=== PATIENT | female | born 1995 | race Caucasian/White ===

== ENCOUNTER 2020-11-06 20:17 | Emergency (ER) | payer MEDICAID ==
[~2020-11-06] VITALS: Ht 162.6 cm; Wt 74.8 kg
[2020-11-06 20:30] VITALS: BP 114/65
--- NOTE | 2020-11-06 20:33 | NUR ---
TO LOBBY A/W BED AMBULATORY
--- NOTE | 2020-11-07 01:13 | NUR ---
Patient being evaluated by physician.
--- NOTE | 2020-11-07 01:15 | NUR ---
Patient evaluated by Dr. Pierce. No nursing interventions for this patient.
[2020-11-07] MEDS ORDERED: NAPR-54 PO (01:33)
--- NOTE | 2020-11-07 01:39 | NUR ---
Patient given discharge instructions and discharged by Dr. Pierce. Rx of naprosyn given. Medication administration and side effects explained by Dr. Pierce. Opportunity to ask questions given prior to departure.
== END 2020-11-07 01:39 | disposition home or self-care (01) ==
LOC: MED 20:17
DX: S83.92XA Sprain of unspecified site of left knee, initial encounter (principal); X50.9XXA Other and unspecified overexertion or strenuous movements or postures, initial encounter; Y93.89 Activity, other specified; Y92.89 Other specified places as the place of occurrence of the external cause; Y99.8 Other external cause status
CPT/HCPCS: 73562; 99283